=== PATIENT | male | born 1980 | race Caucasian/White ===

== ENCOUNTER 2020-02-21 07:14 | Emergency (ER) | payer SELFPAY ==
[~2020-02-21] VITALS: Ht 170.2 cm; Wt 72.6 kg
[2020-02-21 07:26] VITALS: BP 237/130
[2020-02-21] MEDS ORDERED: LORazepam 2 MG/ML VIAL IVP ONE (07:30)
[2020-02-21] MEDS ORDERED: NACL 0.9% 1,000 ML IV ONE (07:30)
[2020-02-21 07:53] LABS: HEMATOCRIT 46.7 % (36-52); HEMOGLOBIN 15.7 g/dL (12.0-18.0); MEAN CORPUSCULAR HEMOGLOBIN 29 pg (27-31); MEAN CORPUSCULAR HGB CONC 34 g/dL (33-37); MEAN CORPUSCULAR VOLUME 86.9 fL (80-94); RED BLOOD CELL COUNT(AUTO) 5.38 MIL/uL (4.20-6.10); RED CELL DISTRIBUTION WIDTH 12.6 % (11.6-13.7); WHITE BLOOD COUNT (AUTO) 9.7 K/uL (4.8-10.8)
[2020-02-21 08:07] LABS: ALBUMIN 4.2 g/dL (3.4-5.0); ANION GAP 16.4 (8-16); CARBON DIOXIDE 25.3 mmol/L (21-32); CREATININE 1.2 mg/dL (0.6-1.3); TOTAL BILIRUBIN 0.3 mg/dL (0.0-1.0)
[2020-02-21 08:42] LABS: PLATELET COUNT (AUTO) 246 K/uL (140-450)
[2020-02-21 08:43] LABS: BASOPHILS % (MANUAL) 0 % (0-2); EOSINOPHILS % (MANUAL) 0 % (0-4); LYMPHOCYTES % (MANUAL) 42 % (20-46); MONOCYTES % (MANUAL) 7 % (5-12)
[2020-02-21 09:03] LABS: POTASSIUM 2.7 mmol/L (3.5-5.1)
[2020-02-21] MEDS ORDERED: POTASSIUM CHLORIDE 10 MEQ TABER PO ONE (09:05)
[2020-02-21 09:38] VITALS: BP 171/121
== END 2020-02-21 09:40 | disposition home or self-care (01) ==
LOC: MED 07:14
DX: T40.7X1A Poisoning by cannabis (derivatives), accidental (unintentional), initial encounter (principal); E86.0 Dehydration; R00.0 Tachycardia, unspecified; E87.6 Hypokalemia; F12.90 Cannabis use, unspecified, uncomplicated; I10 Essential (primary) hypertension; X58.XXXA Exposure to other specified factors, initial encounter; Y93.89 Activity, other specified; Y92.89 Other specified places as the place of occurrence of the external cause; Y99.8 Other external cause status
CPT/HCPCS: 36415; 71045; 80053; 85025; 93005; 96374; 99285; J2060; J7030; Q0092